=== PATIENT | female | born 1965 | race Caucasian/White ===

== ENCOUNTER 2021-07-29 15:21 | Emergency (ER) | payer MEDICAID ==
[~2021-07-29] VITALS: Ht 162.6 cm; Wt 61.4 kg
[2021-07-29] MEDS ORDERED: LORazepam 2 mg/ml vial IM ONE (15:30)
[2021-07-29] MEDS ORDERED: diphenhydrAMINE 50 mg/ml inj IM ONE (15:30)
[2021-07-29] MEDS ORDERED: haloperidol lactate 5mg/ml inj IM ONE (15:30)
[2021-07-29 16:00] LABS: BASOPHILS % (AUTO) 0.6 % (0-1); EOSINOPHILS % (AUTO) 0.3 % (0-6); HEMATOCRIT 40.2 % (35.0-45.0); HEMOGLOBIN 13.5 g/dl (12.0-16.0); LYMPHOCYTES # (AUTO) 1.5 X10'3 (1.1-4.8); LYMPHOCYTES % (AUTO) 19.2 % (21-51); MEAN CORPUSCULAR HGB CONC 33.7 g/dL (33.0-36.5); MEAN CORPUSCULAR VOLUME 89.1 FL (78-98); MEAN PLATELET VOLUME 9.7 FL (7.4-10.4); MONOCYTES # (AUTO) 0.8 X10'3 (0-0.9); MONOCYTES % (AUTO) 10.3 % (2-12); NEUTROPHILS # (AUTO) 5.5 X10'3 (1.8-7.7); NEUTROPHILS % (AUTO) 69.6 % (42-75); PLATELET COUNT 170 X10'3 (140-440); RED BLOOD COUNT 4.51 X10'6 (4.20-5.60); RED CELL DISTRIBUTION WIDTH 13.6 % (11.5-14.5); WHITE BLOOD COUNT 7.9 X10'3 (4.5-11.0)
[2021-07-29 16:13] LABS: ALANINE AMINOTRANSFERASE 49 U/L (12-78); ALBUMIN 4.3 G/DL (3.4-5.0); ALBUMIN/GLOBULIN RATIO 1.3 (1.1-1.5); ALKALINE PHOSPHATASE 98 IU/L (46-116); ANION GAP 10 (8-16); ASPARTATE AMINO TRANSFERASE 39 U/L (10-37); BILIRUBIN,TOTAL 0.6 MG/DL (0.1-1.0); BLOOD UREA NITROGEN 29 MG/DL (7-18); BUN/CREATININE RATIO 29.6 (6.6-38.0); CALCIUM 9.4 MG/DL (8.5-10.1); CHLORIDE 108 MMOL/L (99-107); CREATININE 0.98 MG/DL (0.40-0.90); GLUCOSE 148 MG/DL (70-104); POTASSIUM 3.9 MMOL/L (3.5-5.1); SODIUM 144 MMOL/L (135-145); TOTAL CARBON DIOXIDE 26.3 MMOL/L (24-32); TOTAL PROTEIN 7.6 G/DL (6.4-8.2); eGFR 58 ML/MIN
[2021-07-29 16:22] LABS: ETHANOL < 0.010 GM/DL (0.0-0.010)
[2021-07-29 17:00] LABS: URINE AMPHETAMINE SCREEN NEGATIVE (Neg); URINE BARBITUATE SCREEN NEGATIVE (Neg); URINE BENZODIAZEPINES SCREEN NEGATIVE (Neg); URINE CANNABINOID SCREEN NEGATIVE (Neg); URINE COCAINE SCREEN NEGATIVE (Neg); URINE METHADONE SCREEN NEGATIVE (Neg); URINE OPIATE SCREEN POSITIVE (Neg); URINE PHENCYCLIDINE SCREEN NEGATIVE (Neg)
--- NOTE | 2021-07-29 20:30 | NUR ---
PT ORIENTED TO UNIT AND BED, BELONGINGS LOGGED, NO ACUTE DISTRESS NOTED. WILL MONITOR THROUGHOUT STAY, NO BEHAVIORS NOTED AT PRESENT.
--- NOTE | 2021-07-30 00:46 | NUR ---
PT PROVIDED WATER AND , JUICE AND YOGURT
--- NOTE | 2021-07-30 03:45 | NUR ---
PT WOKE UP ASKING FOR MD, WAS DISORIENTED TO TIME. NO ACUTE DISTRESS NOTED. WILL COLLECT URINE WHEN SHE WAKES.
--- NOTE | 2021-07-30 06:44 | NUR ---
PT UP TO BATHROOM AND PROVIDED URINE SAMPLE. PT ASKING WHEN THE DOCTOR AND MENTAL HEALTH WILL SEE HER. AFTER BRIEF CONVERSATION, PT NOW LAYING BACK IN BED
[2021-07-30 06:54] LABS: CLARITY,URINE CLEAR (Clear); COLOR,URINE YELLOW (Yellow); GLUCOSE, URINE NEGATIVE (Neg); KETONES,URINE 15 mg/dl (Neg); LEUKOCYTE ESTERASE ,URINE NEGATIVE (Neg); NITRITES, URINE NEGATIVE (Neg); OCCULT BLOOD,URINE NEGATIVE (Neg); PH,URINE 6.5 (4.8-8.0); PROTEIN,URINE NEGATIVE (Neg); UROBILINOGEN,URINE 0.2 E.U/dL (0.2-1.0)
[2021-07-30 06:56] LABS: UA COLLECTION TYPE CLN CATCH MIDSTREAM
--- NOTE | 2021-07-30 07:08 | NUR ---
[facility] packet faxed. Patient is awake, requesting juice.
[2021-07-30 07:21] VITALS: BP 193/99
[2021-07-30] MEDS ORDERED: OXYC5TAB2 PO (07:23)
[2021-07-30] MEDS ORDERED: BACL20TA PO (07:23)
[2021-07-30] MEDS ORDERED: MSC30T PO (07:23)
--- NOTE | 2021-07-30 07:26 | NUR ---
MED REC COMPLETED WITH PATIENT AND WITH EXTERNAL MED REC.
--- NOTE | 2021-07-30 07:54 | NUR ---
MACHELLE PHILLIPS MADE AWARE OF PT HIGH BLOOD PRESSURE. PT DENIES ANY CP, SOB, OR SYMPTOMS OF ANY TYPE. PER ALAN, GIVE PAIN MED WHEN AVAILABLE BY PHARMACY HYPERTENSION MAY BE DUE TO PAIN PT REPORTS THIS OCCURS FREQUENTLY WHEN SHE DOESNT HAVE HER PAIN MEDICATIONS REGULARLY
[2021-07-30] MEDS ORDERED: morphine ER 30mg tablet PO SCH ×2 (08:00→12:02)
[2021-07-30] MEDS ORDERED: baclofen 10mg tablet PO PRN (08:00)
[2021-07-30] MEDS: oxyCODONE IR 5mg (immed. release) tablet PO PRN ×2 (09:13→17:10)
--- NOTE | 2021-07-30 10:32 | NUR ---
PT SITTING IN BED QUIETLY, NO DISTRESS NOTED. WILL CONTINUE TO MONITOR.
--- NOTE | 2021-07-30 12:24 | NUR ---
PT EATING LUNCH. NO DISTRESS
--- NOTE | 2021-07-30 12:46 | NUR ---
Erica with [facility] is at bedside speaking with the patient.
--- NOTE | 2021-07-30 14:45 | NUR ---
pt sitting in her bed talking with mental health. no distress noted.
--- NOTE | 2021-07-30 15:01 | NUR ---
Chikis, patient's sister, .
== END 2021-07-30 17:56 | disposition home or self-care (01) ==
LOC: ER 15:21
DX: F43.0 Acute stress reaction (principal); Z79.899 Other long term (current) drug therapy; Z20.822 Contact with and (suspected) exposure to COVID-19
CPT/HCPCS: 36415; 80053; 80305; 80320; 81003; 84443; 85025; 87635; 96372; 99285; C9803; J1200; J1630; J2060

== ENCOUNTER 2024-06-15 10:19 | Outpatient (CLI) | payer MEDICARE, MEDICAID ==
[~2024-06-15 10:19] MED LIST: BACL20TA PO; MSC30T PO; OXYC5TAB2 PO
== END 2024-06-15 23:59 | disposition home or self-care (01) ==
LOC: VAS 10:19
PROVIDERS: ATTEND Internal Medicine Interventional Cardiology
DX: Z01.818 Encounter for other preprocedural examination (principal); I10 Essential (primary) hypertension; I65.21 Occlusion and stenosis of right carotid artery; E78.5 Hyperlipidemia, unspecified
CPT/HCPCS: 93880

== ENCOUNTER 2024-06-22 08:54 | Outpatient (CLI) | payer MEDICARE, MEDICAID ==
[~2024-06-22] VITALS: Ht 165.1 cm; Wt 77.3 kg
[2024-06-22] VITALS (8 sets, daily range): BP systolic 107–183; BP diastolic 74–90; PULSE 85–113; RESP 16; O2SAT 96–97
[2024-06-22] MEDS ORDERED: aminophylline 500mg/20ml vial IV ONE (09:40)
[2024-06-22] MEDS: regadenoson 0.4mg/5ml syringe IV ONE (09:58)
== END 2024-06-22 23:59 | disposition home or self-care (01) ==
LOC: NM 08:54
PROVIDERS: ATTEND Nurse Practitioner Family
DX: Z01.810 Encounter for preprocedural cardiovascular examination (principal); I10 Essential (primary) hypertension
CPT/HCPCS: 78452; 93017; A9500; J0280; J2785

== ENCOUNTER 2024-06-27 09:35 | Outpatient (CLI) | payer MEDICARE, MEDICAID | END 2024-06-27 23:59 | disposition home or self-care (01) | LOC: CARD DIAG 09:35 | PROVIDERS: ATTEND Nurse Practitioner Family | DX: Z01.810 Encounter for preprocedural cardiovascular examination (principal); I08.8 Other rheumatic multiple valve diseases; I10 Essential (primary) hypertension | CPT/HCPCS: 93306 ==